=== PATIENT | male | born 1960 | race Caucasian/White ===

== ENCOUNTER 2016-12-31 09:05 | Observation (INO) | payer BC ==
[2016-12-31] MEDS ORDERED: Aspirin Low Dose CHEW TAB* 81 MG PO ONE (09:18)
[2016-12-31] MEDS ORDERED: Adenosine* 3 MG/ML VIAL ONE ×2 (09:19→09:34)
[2016-12-31] MEDS ORDERED: NS 0.9% 1000 ML* 1,000 ML IV ONE (09:19)
[2016-12-31] MEDS ORDERED: Diltiazem IV VIAL* 125 MG/25 ML VIAL ONE (09:38)
[2016-12-31 09:40] LABS: Hematocrit 46 % (42-52); Hemoglobin 15.7 g/dl (14.0-18.0); Mean Corpuscular HGB Conc 35 g/dl (31-36); Mean Corpuscular Hemoglobin 31 pg (27-31); Mean Corpuscular Volume 89 fL (80-94); Mean Platelet Volume 9 um3 (7.4-10.4); Red Blood Count 5.12 10^6/ul (4.0-5.4); Red Cell Distribution Width 15 % (10.5-15); White Blood Count 8.8 10^3/ul (3.5-10.8)
[2016-12-31 09:51] LABS: Albumin 4.2 g/dL (3.2-5.2); BUN/Creatinine Ratio 11.1 (8-20); Calcium 9.6 mg/dL (8.6-10.3); EGFR African American 99.9 (>60); EGFR Non-African American 77.6 (>60); Globulin 2.7 g/dL (2-4); Magnesium 2.2 mg/dL (1.9-2.7); Potassium 4.2 mmol/L (3.5-5.0); Total Bilirubin 0.6 mg/dL (0.2-1.0); Total Protein 6.9 g/dL (6.4-8.9)
[2016-12-31] MEDS ORDERED: Metoprolol Tartrate IV* 1 MG/ML 5 ML VIAL ONE (09:52)
[2016-12-31 09:53] LABS: Troponin I 0.02 ng/mL (<0.04)
[2016-12-31] MEDS ORDERED: Diltiazem IV* 5 MG/ML 5 ML VIAL (for loading dose/IV Push) (25 MG) IV SLOW PU ONE (10:03)
[2016-12-31] MEDS ORDERED: Metoprolol Tartrate IV* 1 MG/ML 5 ML VIAL IV ONE (10:03)
[2016-12-31] MEDS ORDERED: Adenosine* 3 MG/ML VIAL IV PUSH ONE (10:03)
[2016-12-31 10:34] LABS: Free T4 0.84 ng/dL (0.61-1.12)
--- NOTE | 2016-12-31 10:38 | RAD ---
HISTORY: Tachycardia COMPARISONS: None VIEWS: 1: frontal portable view of the chest at 10:03 AM FINDINGS: LINES AND TUBES: None. CARDIOMEDIASTINAL SILHOUETTE: The cardiomediastinal silhouette is normal for portable technique. PLEURA: The costophrenic angles are sharp. No pleural abnormalities are noted. LUNG PARENCHYMA: The lungs are clear. ABDOMEN: The upper abdomen is clear. There is no subphrenic gas. BONES AND SOFT TISSUES: No bone or soft tissue abnormalities are noted. IMPRESSION: NO ACTIVE CARDIOPULMONARY DISEASE.
[2016-12-31] MEDS ORDERED: Labetalol IV* 200 MG in NS 0.9% 250 ML* 160 ML IVPB ONE (10:49)
[2016-12-31 11:02] LABS: TSH (Thyroid Stimulating Horm) 1.79 mcIU/mL (0.34-5.60)
[2016-12-31] MEDS ORDERED: Rivaroxaban TAB(*) 20 MG TAB PO SCH (11:34)
--- NOTE | 2016-12-31 12:32 | CONSULT ---
Subjective Date of Service: 12/31/16 Interval History: Cardiology consult 12/31/2016 Service: Hospitalist CC: Palpitations Reason for consult: Atrial fibrillation. HPI Mr. Saurabh Rodriguez is a 56 year old man with a history of paroxysmal atrial fibrillation since about age 18 has had what sounds like chemical cardioversions in the past and has pill in the pocket amiodarone at home has not used in 5 years. 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 He has had what amounts to be a relatively higher amount of alcohol for him being on vacation in [place]. He also has sleep apnea and is not on CPAP. He denies any history of CHF, HTN, DM, CVA/TIA or vascular disease. He felt his atrial fibrillation symptoms come on about 4 AM this morning. This was confirmed with implantable loop monitor interrogation and was in sinus rhythm before this. The atrial fibrillation has been present for 24 hours. He presented to the ER in rapid atrial fibrillation and received various IV medications in the ER including IV diltiazem, metoprolol, adenosine and labetalol. He remains in rapid atrial fibrillation and symptomatic at this time. PAST MEDICAL HISTORY: 1. Atrial fibrillation. 2. History of right finger injury. 3. Vascular injury with question of clot which is why he had the implantable loop monitor placed 4. Thyroid goiter, asymptomatic. MEDICATIONS: None. ALLERGIES: None. FAMILY HISTORY: Noncontributory. SOCIAL HISTORY: No report of drug use. The patient smokes about half a pack of miniature cigars a day. He drinks wine daily usually about 2 glasses. His is the healthcare proxy. 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 Medications Active Medications: Rivaroxaban (Xarelto (*)) 20 mg PO DAILY MELQUIADES Last Admin: 12/31/16 11:44 Dose: 20 mg Review of Systems - Measurements Intake and Output: Intake and Output Last 24 Hours 12/29/16 12/30/16 12/31/16 01/01/17 06:59 06:59 06:59 06:59 Intake Total 1000 Balance 1000 Weight 230 lb Intake: IV Fluids 1000 - Review of Systems Constitutional Symptoms: Negative: Weight Gain, Weight Loss, Weakness, Fatigue Dermatology: Negative: Rash, Skin Lesions HEENT: Negative: Change in Hearing, Vertigo, Dental Problems Eyes: Negative: Change in Vision, Double Vision, Eye Pain Thyroid: Negative: Cold Intolerance, Heat Intolerance, Sweatiness, Tremor, Frequent Defecation, Constipation, Palpitations, Primary Hypothyroidism, Primary Hyperthyroidism Pulmonary: Negative: Cough, Sputum, Hemoptysis, Wheezing, Respiratory Distress, Shortness of Breath, COPD Cardiology: Positive: Palpitations Negative: Chest Pain, Shortness of Breath, Swelling of Ankles, Peripheral Vascular Dis, Edema, Faintness, Syncope, Claudication, Paroxysmal Nocturnal Dyspnea, Orthopnea Gastroenterology: Negative: Abdominal Pain, Nausea, Vomiting, Anorexia, Heartburn, Constipation , Diarrhea, Haematemesis, Melena Genital - Urinary: Negative: Dysuria, Hematuria, Polyuria Musculoskeletal: Negative: Joint Pain, Joint Stiffness, Arthritis, Osteoporosis, Low Back Pain Endocrinology: Negative: Thyroid Problems, Obesity, Diabetes, Polydipsia, Polyuria Hematologic/Lymphatic: Negative: Anemia, Easy Brusing, Hx Leukemia, Hx Lymphoma, Use of Anticoagulant, Use of Antiplatelet Drugs Neurology: Negative: Headaches, Migraines, Change in Vision, Diplopia, Dizziness, Change in Balancing, Change in Coordination, Change in Memory, Change in Walking , Numbness\Paresthesiae, Hx of Stroke\TIA, Hx Seizures Psychiatry: Negative: Depression, Anxiety, Depressed Mood, Adhedonia, Weight Change, Guilt Feelings Allergic/Immunologic: Negative: Hx Anaphylaxis, Hx Angioedema, Hx Environmental Allergies, Hx Seasonal Allergies, Hx HIV, Immunocompromise Review of Systems Statement: All other review of systems negative, unless stated above. Objective Vital Signs: Temp Pulse Resp BP Pulse Ox 97.4 F 148 14 124/110 99 12/31/16 09:45 12/31/16 09:54 12/31/16 09:54 12/31/16 09:54 12/31/16 09:54 Appearance: nad, pleasant Ears/Nose/Mouth/Throat: Clear Oropharnyx, Mucous Membranes Moist Neck: NL Appearance and Movements; NL JVP Respiratory: Symmetrical Chest Expansion and Respiratory Effort, Clear to Auscultation Cardiovascular: - - irregularly irregular, no significant murmur Abdominal: NL Sounds; No Tenderness; No Distention Extremities: No Edema, No Clubbing, Cyanosis Skin: No Rash or Ulcers Neurological: Alert and Oriented x 3 Laboratory Results: 12/31/16 09:25 12/31/16 09:25 Total Bilirubin 0.60 mg/dL (0.2-1.0) 12/31/16 09:25 AST 23 U/L (13-39) 12/31/16 09:25 ALT 19 U/L (7-52) 12/31/16 09:25 Alkaline Phosphatase 65 U/L (34-104) 12/31/16 09:25 Total Protein 6.9 g/dL (6.4-8.9) 12/31/16 09:25 Albumin 4.2 g/dL (3.2-5.2) 12/31/16 09:25 Globulin 2.7 g/dL (2-4) 12/31/16 09:25 Albumin/Globulin Ratio 1.6 (1-3) 12/31/16 09:25 TSH 1.79 mcIU/mL (0.34-5.60) 12/31/16 09:25 mg 2.2 12/31/16 09:25 Troponin I 0.02 Diagnostic Imaging: CXR 12/31/2016: No acute disease EKG Data: 12/31/2016: #1: Rapid Afib 180 bpm, no ischemic changes #2: Atrial fibrillation 124 bpm Assessment/Plan Mr. Rodriguez is a 56-year-old man with a PMhx of symptomatic Pafib [id number] score 0, linq monitor to evaluate ? vascular embolic event presents with symptomatic rapid atrial fibrillation of less than 24 hours duration unable to adequately rate control despite multiple IV rate control medications. - Electrical cardioversion was recommended and patient wished to proceed and was performed without complication (see separate note) - Despite chads2-vasc score of 0, I favor a month of anticoagulation post- cardioversion and this was recommended. He received 20 mg PO xarelto prior to procedure and is to start 20 mg PO daily for a month continuing tomorrow with evening meal. We discussed risks including but not limited to life threatening bleeding from trauma, GI hemorrhage or intracranial hemorrhage and patient expressed understanding - Patient was advised to not drink any more alcohol this weekend and he is already aware of the association between alcohol use and atrial fibrillation which I think may be what provoked this event. - Patient advised to quit smoking to help reduced risk of things including but not limited to IL, CVA and even in the short term. - Patient can be discharged from a cardiac standpoint Thank you for allowing me to participate in the cardiovascular care of this patient. Please do not hesitate to contact me with questions or concerns.
[2016-12-31] MEDS ORDERED: Flumazenil* 0.1 MG/ML 5 ML MDV ONE (13:48)
[2016-12-31] MEDS ORDERED: fentaNYL* 50 MCG/ML 2 ML VIAL (100 MCG VIAL) ONE (13:48)
[2016-12-31] MEDS ORDERED: Naloxone* 0.4 MG/ML 1 ML VIAL ONE (13:49)
[2016-12-31] MEDS: Midazolam* 1 MG/ML 10 ML VIAL (10 MG) ONE ×2 (14:20→15:03)
--- NOTE | 2016-12-31 14:49 | HP ---
HOSPITAL MEDICINE HISTORY AND PHYSICAL: DATE OF ADMISSION: 12/31/16 ATTENDING PHYSICIAN: Cody Means MD* (DICTATED BY PERLA ALLEN NP) CHIEF COMPLAINT: Rapid heart rate. HISTORY OF PRESENT ILLNESS: Mr. Rodriguez is a 56-year-old male with a past medical history with atrial fibrillation paroxysmally who presented to the hospital today with concern for rapid heart rate with suspected AFib. Mr. Rodriguez states that she has had 2 previous bouts of atrial fibrillation; one about 5 years ago and one about 9 years ago. He has been treated by a junior estimator in [place] where he is from. He is here in the [facility] doing [employer] tours and visiting with friends. He has been feeling in his normal state of health until 4 a.m. this morning when he awoke with rapid heart rate. This is similar to past episodes and he felt quite likely that he was in atrial fibrillation. He does have a loop recorder, which was placed around [facility] of last year. The last read of the monitor showed that he had had two 5 seconds or less episodes of AFib. The patient is not currently on any medications for atrial fibrillation, though he had been told by his junior estimator that should he have an event that he could take amiodarone and metoprolol and would likely "be okay." The patient did not bring his medications here with him on his trip as he has not needed them for the past 5 years. He denies any shortness of breath or chest pain. In the emergency room, Mr. Rodriguez was confirmed to be in atrial fibrillation. His heart rate is as high as 150. He was given adenosine x3, diltiazem x2 and metoprolol x2. Through this, he transiently had a lower heart rate, but his heart rate now remains in the 130s. His blood pressure is in the 90 systolically. He remains symptomatic. His labs show that he has a potassium of 4.2, a magnesium of 2.2, a troponin of 0.02, a TSH of 1.79. Chest x-ray shows no acute process. PAST MEDICAL HISTORY: 1. Atrial fibrillation. 2. History of right finger injury. 3. Vascular injury with question of clot. 4. Thyroid goiter, asymptomatic. MEDICATIONS: None. ALLERGIES: None. FAMILY HISTORY: Reviewed, noncontributory. SOCIAL HISTORY: No report of drug use. The patient smokes about half a pack of cigarettes a day. He drinks wine daily usually about 2 glasses or sometimes more. His is the healthcare proxy. REVIEW OF SYSTEMS: A 14-point review of systems was completed with Mr. Rodriguez and all those not mentioned above were negative. PHYSICAL EXAMINATION GENERAL: Mr. Rodriguez is sitting on the bed. He is in no acute distress. VITAL SIGNS: Temperature 97.4; heart rate as high as 150, now running about 115 at rest; respiratory rate 20; O2 saturation 99% on room air, blood pressure 100/59. LUNGS: Clear to auscultation bilaterally with no accessory muscle use and good aeration. HEART: S1, S2. No murmur, rub, or gallop and irregular. ABDOMEN: Soft, nontender with bowel sounds positive x4. EXTREMITIES: No cyanosis or edema. NEURO: He is alert. He is oriented x3. He moves all extremities equally. There is no facial asymmetry or focal weakness. Extraocular movements are intact. SKIN: Intact. DIAGNOSTIC STUDIES/LAB DATA: WBC 8.8, hemoglobin 16.7, hematocrit 46, and platelet count 210. Sodium 141, potassium 4.2, chloride 110, serum bicarbonate 25, BUN 11, creatinine 0.99. Glucose 89. Lactic acid 1.6. Troponin 0.02. EKG shows a AFib with a heart rate at 124. Chest x-ray shows no acute process. ASSESSMENT: Mr. Rodriguez is a 56-year-old male with a past medical history of atrial fibrillation and thyroid goiter that is asymptomatic, who presented to the hospital today with AFib with rapid ventricular response. Our recommendation is for observation in the hospital for the followin. Atrial fibrillation with rapid ventricular response. I have consulted with Dr. Alcantar, unfortunately, the patient's blood pressure is running in the 90s systolically at this point after receiving multiple medications in the ED to try to control his heart rate. He does remain asymptomatic. Dr. Alcantar would like to try electrical cardioversion. The patient has been given a one time 20 mg dose of Xarelto and Dr. Alcantar will be interrogating the loop recorder and considering cardioversion as he has been in AFib for less than 24 hours. Further recommendations will be made based on clinical course. 2. History of thyroid goiter. TSH is normal. The patient is recommended to continue outpatient followup. 3. History of smoking. The patient is counseled already on smoking cessation. Nicotine replacement products will be available if he ends up staying longer in the hospital. 4. Alcohol use. The patient is counseled regarding alcohol use and its connection with paroxysmal atrial fibrillation. Plan for WAM protocol if needed if the patient stays in the hospital overnight. 5. DVT prophylaxis with Xarelto. 6. Code status is full code. TIME SPENT: Approximately 60 minutes were spent on the admission of this patient, more than half the time was spent with the patient at the bedside reviewing the events leading up to this hospitalization, performing the physical examination, and reviewing my plan of care. PERLA ALLEN NP [id number]/[facility] #: [id number] ANNETTE
--- NOTE | 2016-12-31 14:55 | PROCNOTE ---
Cardiology Procedure Note Ling monitor interrogation 12/31/2016 Device placed 02/17/2016 Patient in atrial fibrillation since ~ 3 AM this morning This is first episode of atrial fibrillation since implant There are multiple AT episodes recorded. EGM from most recent one 12/30/2016 at 20:49 appeared to be sinus rhythm
--- NOTE | 2016-12-31 15:00 | PROCNOTE ---
Cardiology Procedure Note 12/31/2016: External electrical cardioversion Risks, benefits alternatives discussed and patient wished to proceed Patient has been in rapid atrial fibrillation symptomatic for < 24 hours, confirmed by implantable loop monitor interrogation so KAREL was not performed Patient was given 20 mg PO xarelto prior to procedure 10 mg IV versed, 100 mcg IV fentanyl used for conscious sedation Patient converted from rapid atrial fibrillation to normal sinus rhythm with 120 J external sync electrical cardioversion x 1 No complications from procedure Patient will be given a script for xarelto 20 mg PO to take daily for a month starting tomorrow He will call to make a follow up appointment with his regular hot cell technician, Dr. Maddox from [facility] 12/31/16 09:25 12/31/16 09:25 Total Bilirubin 0.60 mg/dL (0.2-1.0) 12/31/16 09:25 AST 23 U/L (13-39) 12/31/16 09:25 ALT 19 U/L (7-52) 12/31/16 09:25 Alkaline Phosphatase 65 U/L (34-104) 12/31/16 09:25 Total Protein 6.9 g/dL (6.4-8.9) 12/31/16 09:25 Albumin 4.2 g/dL (3.2-5.2) 12/31/16 09:25 Globulin 2.7 g/dL (2-4) 12/31/16 09:25 Albumin/Globulin Ratio 1.6 (1-3) 12/31/16 09:25 TSH 1.79 mcIU/mL (0.34-5.60) 12/31/16 09:25 Mg 2.2 12/31/16 09:25 Troponin I 0.02
[2016-12-31 15:38] VITALS: BP 117/80
--- NOTE | 2017-01-01 13:05 | DS ---
HOSPITAL MEDICINE DISCHARGE SUMMARY: DATE OF ADMISSION: 12/31/16 DATE OF DISCHARGE: 12/31/16 ATTENDING PHYSICIAN: Cody Means MD * (dictation provided by Perla Sterling NP ). PRIMARY CARE PHYSICIAN: There is no primary care. PRIMARY DIAGNOSIS: Atrial fibrillation with rapid ventricular response. SECONDARY DIAGNOSIS: Thyroid goiter. MEDICATIONS AT THE TIME OF DISCHARGE: Xarelto 20 mg p.o. daily. HOSPITAL COURSE: Mr. Rodriguez is a 56-year-old male who presented to the hospital today, 12/31/16, with concern for atrial fibrillation with rapid ventricular response. Please see dictated H and P from myself complete details. In brief, the patient had had 2 previous episodes of this in the past and had felt his heart rate racing at approximately 4 a.m. He presented to the ED and despite attempts with adenosine, diltiazem and metoprolol, he remained tachycardic. Dr. Alcantar from Cardiology was consulted. He performed an electrical cardioversion after interrogating the patient's loop recorder today to verify that the AFib had been ongoing for less than 24 hours. Patient has been started on Xarelto prior to a cardioversion. Cardioversion was successful and patient has remained in normal sinus rhythm. He is now awake and tolerating oral intake well. Mr. Rodriguez is medically stable for discharge to home, to follow up with his providers in [place] where he resides, as he is just visiting this area for vacation. He is to continue on the Xarelto as prescribed. He has also been counseled regarding avoiding caffeine and alcohol. DISPOSITION: Home. DIET: Regular, avoid caffeine, avoid alcohol. ACTIVITY: As tolerated. FOLLOWUP PLANS: Please follow up with your primary care physician and generation engineer at the time of your return home to [place] regarding this acute observation stay in the hospital with rapid atrial fibrillation. TIME SPENT: Approximately 30 minutes were spent in the discharge of this patient, more than half that time was spent with the patient at the bedside reviewing the events leading up to this hospitalization, performing the physical examination, and reviewing my plan of care. PERLA STERLING NP [id number]/[facility] #: [id number] [facility]
--- NOTE | 2017-01-06 12:32 | ED ---
Jameson Newton SooYoung, scribed for Nathan Mueller MD on 12/31/16 at 0927 . Palpitations / Dysrhythmia - HPI Summary HPI Summary: A 56 y/o M presents to ED with racing palpitations onset approx 0400, sx roused pt from sleep. Pert PMHx: afib, last episode was 5 years ago. Denies prev ablasion, cardioversion, does not take meds. Associated sx: intermittent lightheadedness, weakness, diaphoresis. Denies CP, SOB. No prev SHx. He thinks stress, ETOH trigger the episodes. Pt is in the area for vacation, arrived 4 days ago, has been going to [place], [employer]. Pt ate chocolate covered coffee beans yesterday. Scheduled to see his health and wellness advisor in two days. Recently had a yearly physical, his bloodwork was nml. - History of Current Complaint Chief Complaint: EDGeneral Time Seen by Provider: 12/31/16 09:18 Hx Obtained From: Patient, Family/Assistant Professor Of Radiology - Onset/Duration: Sudden Onset, Lasting Hours, Still Present Severity Initially: Moderate Severity Currently: Moderate Character: Fast Associated Signs & Symptoms: Lightheadedness, Diaphoresis - Allergy/Home Medications Allergies/Adverse Reactions: Allergies Allergy/AdvReac Type Severity Reaction Status Date / Time No Known Allergies Allergy Verified 12/31/16 15:41 PMH/Surg Hx/FS Hx/Imm Hx Previously Healthy: No Endocrine/Hematology History: Reports: Other Endocrine/Hematological Disorders - thyroid goiter Cardiovascular History: Reports: Hx Atrial Fibrillation Respiratory History: Reports: Hx Asthma, Hx Sleep Apnea Denies: Other Respiratory Problems/Disorders - denies respiratory PMHx Infectious Disease History: No Infectious Disease History: Denies: Traveled Outside the [place] in Last 30 Days - Family History Known Family History: Negative: Cardiac Disease - Social History Occupation: Employed Full-time Lives: With Family Alcohol Use: Occasionally Hx Tobacco Use: Yes Type: Cigars Review of Systems Positive: Skin Diaphoresis. Negative: Fever, Chills Negative: Erythema Negative: Sore Throat Positive: Palpitations. Negative: Chest Pain Negative: Shortness Of Breath, Cough Negative: Abdominal Pain, Vomiting, Nausea Negative: dysuria, hematuria Negative: Myalgia, Edema Negative: Rash Neurological: Other - pos: lightheadedness; neg: dizziness Positive: Weakness All Other Systems Reviewed And Are Negative: Yes Physical Exam - Summary Physical Exam Summary: Constitutional: Well-developed, Well-nourished, Alert. (-) Distressed Skin: Warm, Dry HENT: Normocephalic; Atraumatic Eyes: Conjunctiva normal Neck: Musculoskeletal ROM normal neck. (-) JVD, (-) Stridor, (-) Tracheal deviation Cardio: Rapid irregular pulse, Heart sounds normal; Intact distal pulses; The pedal pulses are 2+ and symmetric. Radial pulses are 2+ and symmetric. (-) Murmur Pulmonary/Chest wall: Effort normal. (-) Respiratory distress, (-) Wheezes, (-) Rales Abd: Soft, (-) Tenderness, (-) Distension, (-) Guarding, (-) Rebound Musculoskeletal: (-) Edema Lymph: (-) Cervical adenopathy Neuro: Alert, Oriented x3 Psych: Mood and affect Normal Triage Information Reviewed: Yes Vital Signs On Initial Exam: Initial Vitals Temp Pulse Resp BP Pulse Ox 97.6 F 111 20 129/79 100 12/31/16 09:08 12/31/16 09:08 12/31/16 09:08 12/31/16 09:08 12/31/16 09:08 Vital Signs Reviewed: Yes Diagnostics - Vital Signs Vital Signs Temp Pulse Resp BP Pulse Ox 12/31/16 09:08 97.6 F 111 20 129/79 100 - Laboratory Lab Results: Lab Results 12/31/16 12/31/16 12/31/16 Range/Units 09:25 09:25 09:25 WBC 8.8 (3.5-10.8) 10^3/ul RBC 5.12 (4.0-5.4) 10^6/ul Hgb 15.7 (14.0-18.0) g/dl Hct 46 (42-52) % MCV 89 (80-94) fL MCH 31 (27-31) pg MCHC 35 (31-36) g/dl RDW 15 (10.5-15) % Plt Count 210 (150-450) 10^3/ul MPV 9 (7.4-10.4) um3 Neut % (Auto) 71.1 (38-83) % Lymph % (Auto) 20.3 L (25-47) % Richardson % (Auto) 7.0 (1-9) % Eos % (Auto) 0.6 (0-6) % Baso % (Auto) 1.0 (0-2) % Absolute Neuts (auto) 6.3 (1.5-7.7) 10^3/ul Absolute Lymphs (auto) 1.8 (1.0-4.8) 10^3/ul Absolute Monos (auto) 0.6 (0-0.8) 10^3/ul Absolute Eos (auto) 0.1 (0-0.6) 10^3/ul Absolute Basos (auto) 0.1 (0-0.2) 10^3/ul Absolute Nucleated RBC 0.01 10^3/ul Nucleated RBC % 0.1 Sodium 141 (133-145) mmol/L Potassium 4.2 (3.5-5.0) mmol/L Chloride 110 (101-111) mmol/L Carbon Dioxide 25 (22-32) mmol/L Anion Gap 6 (2-11) mmol/L BUN 11 (6-24) mg/dL Creatinine 0.99 (0.67-1.17) mg/dL Est GFR ( Amer) 99.9 (>60) Est GFR (Non-Af Amer) 77.6 (>60) BUN/Creatinine Ratio 11.1 (8-20) Glucose 89 (70-100) mg/dL Lactic Acid 1.6 (0.5-2.0) mmol/L Calcium 9.6 (8.6-10.3) mg/dL Magnesium 2.2 (1.9-2.7) mg/dL Total Bilirubin 0.60 (0.2-1.0) mg/dL AST 23 (13-39) U/L ALT 19 (7-52) U/L Alkaline Phosphatase 65 (34-104) U/L Troponin I 0.02 (<0.04) ng/mL Total Protein 6.9 (6.4-8.9) g/dL Albumin 4.2 (3.2-5.2) g/dL Globulin 2.7 (2-4) g/dL Albumin/Globulin Ratio 1.6 (1-3) TSH 1.79 (0.34-5.60) mcIU/mL Free T4 0.84 (0.61-1.12) ng/dL Result Diagrams: 12/31/16 09:25 12/31/16 09:25 Lab Statement: Any lab studies that have been ordered have been reviewed, and results considered in the medical decision making process. - Radiology CXR Xray Interpretation: No Acute Changes - IMPRESSION: No active cardiopulmonary dz. ED physician has reviewed this radiology report and agrees. Radiology Interpretation Completed By: Radiologist - EKG 1000 EKG Interpretation: Continuous EKG monitoring revealed a-fib with RVR 0917 Cardiac Rate: Tachycardia - [address] Segment: Normal - no STEMI EKG Interpretation: Irregular narrow complex tachycardia Re-Evaluation - Re-Evaluation 1 Re-Evaluation Time: 12:56 Comment: Evaluating pt. Course/Dx - Course Course Of Treatment: Pt is a 56 y/o M presenting with racing palpitations onset approx 0400, sx roused pt from sleep. Pert PMHx: afib, last episode was 5 years ago. Denies prev ablasion, cardioversion, does not take meds. Associated sx: intermittent lightheadedness, weakness, diaphoresis. Denies CP, SOB. No prev SHx. He thinks stress, ETOH trigger the episodes. Pt is in the area for vacation , arrived 4 days ago, has been going to [place], [employer]. Pt ate chocolate covered coffee beans yesterday. Scheduled to see his health and wellness advisor in two days. Pt given Aspirin, fluids in ED. Given 6, 12, 12 mg Adenosine sx resolved but did not last. Given 15, 15, 10 mg Cardizem. Given 10, 10 mg Metoprolol. Bloodwork is without significant abnormalities. Trop is 0.02. CXR shows no active dz. Consulted with hospitalist, will be admitted. - Diagnoses Provider Diagnoses: Atrial fibrillation with RVR - Physician Notifications Discussed Care Of Patient With: Cody Means - hospitalist Time Discussed With Above Provider: 10:15 Instructed by Provider To: Admit As Inpatient - Critical Care Time Critical Care Time: 30-74 min - 45mins Discharge - Discharge Plan Condition: Stable Disposition: ADMITTED TO [facility] Consult Consult: 1301: Consult with Dr. Alcantar, cardio Confirmed that he did turn off IV pump of Labetalol. The documentation as recorded by the Jameson bonds SooYoung accurately reflects the service I personally performed and the decisions made by me, Nathan Mueller MD.
== END 2016-12-31 16:05 | disposition home or self-care (01) ==
LOC: ED 09:05 → ICU 12:42
PROVIDERS: ADMIT Internal Medicine; ATTEND Internal Medicine
PROC: 5A2204Z Restoration of Cardiac Rhythm, Single (ICD-10-PCS; principal; 2016-12-31)
DX: I48.91 Unspecified atrial fibrillation (principal); E04.9 Nontoxic goiter, unspecified; F17.210 Nicotine dependence, cigarettes, uncomplicated
CPT/HCPCS: 36415; 71010; 80053; 83605; 83735; 84439; 84443; 84484; 85025; 93005; 96365; 96375; 99284; A9270-GY; G0378; J0153; J2250; J2310; J3010